=== PATIENT | male | born 1970 | race Caucasian/White ===

== ENCOUNTER 2024-03-31 22:16 | Inpatient (IN) | payer OTHER ==
[2024-04-01 00:39] LABS: BASO % 0.5 % (0-2.0); EOS % 0.9 % (0-4.5); HEMATOCRIT 37.2 % (35.4-49); HEMOGLOBIN 12.9 GM/dL (11.7-16.9); LYMPH % 17.5 % (8-40); MCH 30.4 pg (25.7-33.7); MCHC 34.7 g/dl (32.0-35.9); MEAN CELL VOLUME 87.5 fl (80-96); MEAN PLT VOLUME 7.6 fl (7.5-11.1); MONO % 5.8 % (3.8-10.2); NEUT % 75.3 % (42.8-82.8); PLATELET COUNT 254 10^3/uL (134-434); RBC 4.25 M/mm3 (4.00-5.60); RDW 13.1 % (11.9-15.9); WHITE BLOOD COUNT 8.1 K/mm3 (4.0-10.0)
[2024-04-01] MEDS ORDERED: PIPERACILLIN/TAZOB 3.375 GM 3.375 GM/50 ML BAG IVPB ONE (01:01)
[2024-04-01] MEDS: PIPERACILLIN/TAZOB 3.375 GM 3.375 GM in DEXTROSE 5%-WATER - 50 ML IVPB ONE (01:10)
[2024-04-01 01:22] LABS: POTASSIUM 4.3 mmol/L (3.5-5.1)
[2024-04-01 01:24] LABS: CALCIUM 9.1 mg/dL (8.5-10.1)
[2024-04-01 01:25] LABS: BLOOD UREA NITROGEN 18.9 mg/dL (7-18)
[2024-04-01 01:28] LABS: CREATININE 0.9 mg/dL (0.55-1.3)
[2024-04-01 01:38] LABS: ERYTHROCYTE SEDIMENTATION RATE 85 mm/hr (0-20)
[2024-04-01] MEDS ORDERED: VANCOMYCIN 1 GM PREMIX (F) 1 GM/200 ML BAG ONE (01:55)
[2024-04-01] MEDS: VANCOMYCIN 1 GM PREMIX (F) 1 GM/200 ML BAG IVPB ONE (02:01)
[2024-04-01 03:18] LABS: BILIRUBIN,TOTAL 0.4 mg/dL (0.2-1)
[2024-04-01] MEDS: INSULIN REGULAR HUMAN 100 UNITS/ML *VIAL SQ ONE (03:48)
[2024-04-01] MEDS: SODIUM CHLORIDE 1,000 ML IV STA (03:48)
[2024-04-01] MEDS: SODIUM CHLORIDE 1,000 ML IV SCH (04:29)
[2024-04-01 06:27] LABS: CHLORIDE 106 mmol/L (98-107); POTASSIUM 3.7 mmol/L (3.5-5.1); SODIUM 139 mmol/L (136-145)
[2024-04-01 06:29] LABS: CALCIUM 8.6 mg/dL (8.5-10.1)
[2024-04-01 06:30] LABS: ALBUMIN 3.5 g/dl (3.4-5.0); ANION GAP 6 mmol/L (4-13); BLOOD UREA NITROGEN 15.7 mg/dL (7-18); CO2 28 mmol/L (21-32); GLUCOSE,RANDOM 255 mg/dL (74-106); MAGNESIUM 2.2 mg/dL (1.8-2.4)
[2024-04-01 06:33] LABS: CREATININE 0.7 mg/dL (0.55-1.3); SGOT/AST < 3 U/L (15-37); SGPT/ALT 17 U/L (13-61)
[2024-04-01 06:34] LABS: BILIRUBIN,TOTAL 0.5 mg/dL (0.2-1); PHOSPHOROUS 2.8 mg/dL (2.5-4.9)
[2024-04-01 06:35] LABS: TOT PROT 6.9 g/dl (6.4-8.2)
[2024-04-01 06:42] LABS: BASO % 0.4 % (0-2.0); EOS % 1.4 % (0-4.5); HEMATOCRIT 35.6 % (35.4-49); HEMOGLOBIN 12.5 GM/dL (11.7-16.9); LYMPH % 18.4 % (8-40); MCH 30.7 pg (25.7-33.7); MCHC 35.2 g/dl (32.0-35.9); MEAN CELL VOLUME 87.4 fl (80-96); MEAN PLT VOLUME 7.5 fl (7.5-11.1); MONO % 5.8 % (3.8-10.2); PLATELET COUNT 226 10^3/uL (134-434); RBC 4.07 M/mm3 (4.00-5.60); RDW 12.8 % (11.9-15.9); WHITE BLOOD COUNT 6.3 K/mm3 (4.0-10.0)
[2024-04-01 06:47] LABS: ALK PHOS 163 U/L (45-117)
[2024-04-01] MEDS: INSULIN (LEVEMIR) 100 UNITS/ML UNITS SQ SCH (08:52)
[2024-04-01] MEDS: INSULIN ASPART SLIDING SCALE (NOVOLOG) 1 VIAL SQ SCH (09:00)
[2024-04-01] MEDS: PIPERACILLIN/TAZOB 3.375 GM 50 ML IVPB SCH (10:28)
[2024-04-01] MEDS: ENOXAPARIN NA (PORCINE) 40 MG/0.4 ML DISP.SYRIN SQ SCH (10:28)
[2024-04-01 13:37] VITALS: BMI 29.5
[2024-04-01] MEDS: VANCOMYCIN/WATER FOR INJ (PEG) 1 GM/200 ML BAG IVPB SCH (16:13)
[2024-04-01] MEDS: VANCOMYCIN 1 GM PREMIX (F) 1 GM/200 ML BAG IVPB SCH (16:19)
[2024-04-01] MEDS: VANCOMYCIN 1,000 MG in DEXTROSE 5%-WATER - 250 ML IVPB SCH (22:15)
[2024-04-01] MEDS: PIPERACILLIN/TAZOB 3.375 GM 3.375 GM in DEXTROSE 5%-WATER - 50 ML IVPB SCH (22:16)
[2024-04-02] MEDS: PIPERACILLIN/TAZOB 3.375 GM 50 ML IVPB SCH (02:22)
[2024-04-02] MEDS: VANCOMYCIN/WATER FOR INJ (PEG) 1,000 MG/200 ML BAG IVPB SCH (03:53)
[2024-04-02 09:44] LABS: HEMATOCRIT 35.9 % (35.4-49); HEMOGLOBIN 12.3 GM/dL (11.7-16.9); MCH 30.3 pg (25.7-33.7); MCHC 34.1 g/dl (32.0-35.9); MEAN CELL VOLUME 88.9 fl (80-96); MEAN PLT VOLUME 7.5 fl (7.5-11.1); PLATELET COUNT 243 10^3/uL (134-434); RBC 4.04 M/mm3 (4.00-5.60); RDW 12.9 % (11.9-15.9); WHITE BLOOD COUNT 6.6 K/mm3 (4.0-10.0)
[2024-04-02 09:58] LABS: POTASSIUM 4.2 mmol/L (3.5-5.1)
[2024-04-02 10:05] LABS: CALCIUM 8.8 mg/dL (8.5-10.1)
[2024-04-02 10:12] LABS: CREATININE 0.6 mg/dL (0.55-1.3)
[2024-04-03 08:11] LABS: BASO % 0.7 % (0-2.0); EOS % 2.8 % (0-4.5); HEMATOCRIT 33.6 % (35.4-49); HEMOGLOBIN 11.6 GM/dL (11.7-16.9); LYMPH % 27.6 % (8-40); MCH 30.4 pg (25.7-33.7); MCHC 34.6 g/dl (32.0-35.9); MEAN CELL VOLUME 87.9 fl (80-96); MEAN PLT VOLUME 7.2 fl (7.5-11.1); MONO % 5.8 % (3.8-10.2); NEUT % 63.1 % (42.8-82.8); PLATELET COUNT 239 10^3/uL (134-434); RBC 3.82 M/mm3 (4.00-5.60); RDW 12.9 % (11.9-15.9); WHITE BLOOD COUNT 5.3 K/mm3 (4.0-10.0)
[2024-04-03 08:26] LABS: CALCIUM 8.5 mg/dL (8.5-10.1)
[2024-04-03 08:27] LABS: ALBUMIN 2.9 g/dl (3.4-5.0); BLOOD UREA NITROGEN 8.4 mg/dL (7-18)
[2024-04-03 08:30] LABS: CREATININE 0.6 mg/dL (0.55-1.3)
[2024-04-03 08:32] LABS: BILIRUBIN,TOTAL 0.2 mg/dL (0.2-1); TOT PROT 6.3 g/dl (6.4-8.2)
[2024-04-03] MEDS: INSULIN ASPART SLIDING SCALE (NOVOLOG) 1 VIAL SQ SCH (16:59)
[2024-04-04] MEDS: CEFTRIAXONE 2 GM-D5W BAG 2 GM/50 ML BAG IVPB ONE (11:51)
[2024-04-05 10:27] LABS: HEMATOCRIT 39.2 % (35.4-49); HEMOGLOBIN 13.5 GM/dL (11.7-16.9); MCH 30.6 pg (25.7-33.7); MCHC 34.4 g/dl (32.0-35.9); MEAN PLT VOLUME 7.2 fl (7.5-11.1); PLATELET COUNT 283 10^3/uL (134-434); RDW 13.1 % (11.9-15.9); WHITE BLOOD COUNT 5.3 K/mm3 (4.0-10.0)
[2024-04-05 10:45] LABS: POTASSIUM 4.2 mmol/L (3.5-5.1)
[2024-04-05 10:47] LABS: CALCIUM 9.2 mg/dL (8.5-10.1)
[2024-04-05 10:48] LABS: MAGNESIUM 2.4 mg/dL (1.8-2.4)
[2024-04-05 10:50] LABS: BLOOD UREA NITROGEN 13.4 mg/dL (7-18)
[2024-04-05 10:51] LABS: CREATININE 0.7 mg/dL (0.55-1.3)
[2024-04-05] MEDS: CEFTRIAXONE 2 GM-D5W BAG 2 GM/50 ML BAG IVPB SCH (11:24)
[2024-04-06 10:06] LABS: INR 1.05 (0.83-1.09); PROTHROMBIN TIME (PATIENT) 11.8 SEC (9.7-13.0)
[2024-04-06 10:25] LABS: POTASSIUM 4.2 mmol/L (3.5-5.1)
[2024-04-06 10:26] LABS: HEMATOCRIT 37.7 % (35.4-49); MCH 30.6 pg (25.7-33.7); MCHC 34.6 g/dl (32.0-35.9); MEAN CELL VOLUME 88.4 fl (80-96); MEAN PLT VOLUME 7.3 fl (7.5-11.1); PLATELET COUNT 279 10^3/uL (134-434); RBC 4.26 M/mm3 (4.00-5.60); RDW 13.1 % (11.9-15.9); WHITE BLOOD COUNT 5.2 K/mm3 (4.0-10.0)
[2024-04-06 10:29] LABS: CALCIUM 9.1 mg/dL (8.5-10.1)
[2024-04-06 10:30] LABS: ALBUMIN 3.3 g/dl (3.4-5.0); BLOOD UREA NITROGEN 10.8 mg/dL (7-18); MAGNESIUM 2.3 mg/dL (1.8-2.4)
[2024-04-06 10:32] LABS: CREATININE 0.7 mg/dL (0.55-1.3)
[2024-04-06 10:33] LABS: PHOSPHOROUS 3.6 mg/dL (2.5-4.9)
[2024-04-06 10:36] LABS: BILIRUBIN,TOTAL 0.5 mg/dL (0.2-1)
[2024-04-06 10:37] LABS: TOT PROT 7.1 g/dl (6.4-8.2)
[2024-04-06] MEDS ORDERED: BACITRACIN ZINC 15 GM TUBE TOPICAL OINTMENT ONE (13:59)
[2024-04-06] MEDS ORDERED: LIDOCAINE HCL 2% (20ML MULTI-DOSE VIAL) ONE (13:59)
[2024-04-06] MEDS ORDERED: MIDAZOLAM HCL 2 MG/2 ML SINGLE DOSE VIAL ONE (14:49)
[2024-04-06] MEDS ORDERED: PROPOFOL 40 ML ONE (14:49)
[2024-04-06] MEDS ORDERED: LIDOCAINE HCL/PF 2% SDV 5ML VIAL ONE (15:29)
[2024-04-06] MEDS ORDERED: DEXAMETHASONE SOD PHOSPHATE 4 MG/1 ML VIAL ONE (15:29)
[2024-04-06] MEDS ORDERED: ONDANSETRON 4 MG/2 ML VIAL ONE (15:29)
[2024-04-06] MEDS: LIDOCAINE HCL 2% (50ML VIAL) NR ONE ×2 (15:34)
[2024-04-06] MEDS ORDERED: ONDANSETRON 4 MG/2 ML VIAL IVPUSH PRN (16:14)
[2024-04-06] MEDS ORDERED: oxyCODONE HCL 5 MG TABLET PO PRN (16:14)
[2024-04-06] MEDS: LACTATED RINGERS SOLUTION 1,000 ML IV SCH (16:18)
[2024-04-06] MEDS: INSULIN ASPART SLIDING SCALE (NOVOLOG) 1 VIAL SQ SCH (17:24)
[2024-04-06] MEDS: ACETAMINOPHEN 325 MG TABLET (FP) PO SCH (18:30)
[2024-04-06 18:32] VITALS: RESP 18
[2024-04-06] MEDS ORDERED: ACETAMINOPHEN 325 MG TABLET (FP) PO PRN (20:00)
[2024-04-06] MEDS: INSULIN (LEVEMIR) 100 UNITS/ML UNITS SQ SCH (21:32)
[2024-04-07 09:43] LABS: HEMATOCRIT 36.1 % (35.4-49); HEMOGLOBIN 12.1 GM/dL (11.7-16.9); MCH 29.9 pg (25.7-33.7); MCHC 33.6 g/dl (32.0-35.9); MEAN PLT VOLUME 7.4 fl (7.5-11.1); PLATELET COUNT 284 10^3/uL (134-434); RBC 4.05 M/mm3 (4.00-5.60); RDW 12.6 % (11.9-15.9); WHITE BLOOD COUNT 8.2 K/mm3 (4.0-10.0)
[2024-04-07] MEDS: CEFTRIAXONE 2 GM-D5W BAG 2 GM/50 ML BAG IVPB SCH (10:10)
[2024-04-07] MEDS: HEPARIN NA (PORCINE) 5,000 UNITS/ML 1ML VIAL SQ SCH (22:49)
[2024-04-08 13:23] VITALS: BP 127/81; PULSE 82; TEMP 97.3
== END 2024-04-08 18:07 | disposition home or self-care (01) | DRG 314 ==
LOC: JER 22:16 → JERBED 04-01 00:01 → J5S 04-01 07:47
PROVIDERS: ADMIT Internal Medicine
PROC: 0Y6R0Z3 Detachment at Right 2nd Toe, Low, Open Approach (ICD-10-PCS; principal; 2024-04-06 15:30)
DX: E11.69 Type 2 diabetes mellitus with other specified complication (principal); E11.621 Type 2 diabetes mellitus with foot ulcer; L97.519 Non-pressure chronic ulcer of other part of right foot with unspecified severity; M86.8X7 Other osteomyelitis, ankle and foot; E11.65 Type 2 diabetes mellitus with hyperglycemia; L03.031 Cellulitis of right toe
CPT/HCPCS: 36415; 73630-TC-RT-FY; 73718-TC-RT; 80048; 80053; 82962; 83036; 83735; 84100; 85025; 85027; 85610; 85651; 86140; 86850; 86900; 86901; 87070; 87075; 87077; 87081; 87186; 87205; 88305-TC; 88311-TC; 93005; 93010; 93922; 93926-TC; 94760; 99285-25; G0480; J1644

== ENCOUNTER 2024-06-11 17:43 | Emergency (ER) | payer OTHER ==
[2024-06-11 17:54] VITALS: BP 117/66; PULSE 89; RESP 18; TEMP 98.4; BMI 29.2
[2024-06-11] MEDS ORDERED: ACETAMINOPHEN 500 MG TABLET (FP) ONE (18:49)
[2024-06-11] MEDS: ACETAMINOPHEN 500 MG TABLET (FP) PO ONE (19:09)
[2024-06-11 19:14] LABS: BASO % 0.7 % (0-2.0); EOS % 3.3 % (0-4.5); HEMATOCRIT 34.6 % (35.4-49); LYMPH % 32.6 % (8-40); MCH 30.1 pg (25.7-33.7); MCHC 34.7 g/dl (32.0-35.9); MEAN CELL VOLUME 86.9 fl (80-96); MEAN PLT VOLUME 6.8 fl (7.5-11.1); MONO % 7.9 % (3.8-10.2); NEUT % 55.5 % (42.8-82.8); PLATELET COUNT 263 10^3/uL (134-434); RBC 3.98 M/mm3 (4.00-5.60); WHITE BLOOD COUNT 4.7 K/mm3 (4.0-10.0)
[2024-06-11 19:21] LABS: INR 1.08 (0.83-1.09); PROTHROMBIN TIME (PATIENT) 11.8 SEC (9.7-13.0)
[2024-06-11 19:23] LABS: ACTIVATED PTT 34.3 SECONDS (25.2-36.5)
[2024-06-11 19:37] LABS: POTASSIUM 3.7 mmol/L (3.5-5.1)
[2024-06-11 19:40] LABS: ALBUMIN 3.8 g/dl (3.4-5.0); BLOOD UREA NITROGEN 21.2 mg/dL (7-18)
[2024-06-11 19:43] LABS: CREATININE 0.6 mg/dL (0.55-1.3)
[2024-06-11 19:44] LABS: BILIRUBIN,TOTAL 0.4 mg/dL (0.2-1); TOT PROT 7.6 g/dl (6.4-8.2)
[2024-06-11 20:04] LABS: ERYTHROCYTE SEDIMENTATION RATE 57 mm/hr (0-20)
[2024-06-11] MEDS: DOXYCYCLINE HYCLATE 100 MG CAPSULE PO ONE (21:19)
[2024-06-11] MEDS ORDERED: DOXYCYCLINE HYCLATE 100 MG CAPSULE PO ONE (21:33)
== END 2024-06-11 21:36 | disposition home or self-care (01) ==
LOC: JER 17:43
DX: M79.89 Other specified soft tissue disorders (principal); E11.628 Type 2 diabetes mellitus with other skin complications; L08.9 Local infection of the skin and subcutaneous tissue, unspecified
CPT/HCPCS: 36415; 73590-TC-RT-FY; 73610-TC-RT-FY; 73630-TC-RT-FY; 80053; 85025; 85610; 85651; 85730; 86140; 93971-TC; 99285-25

== ENCOUNTER 2024-06-28 11:09 | Inpatient (IN) | payer OTHER ==
[2024-06-28 11:26] VITALS: BMI 29.2
[2024-06-28 13:07] LABS: BASO % 0.6 % (0-2.0); HEMATOCRIT 37.5 % (35.4-49); HEMOGLOBIN 12.9 GM/dL (11.7-16.9); LYMPH % 30.3 % (8-40); MCH 30.3 pg (25.7-33.7); MCHC 34.5 g/dl (32.0-35.9); MEAN CELL VOLUME 87.9 fl (80-96); MEAN PLT VOLUME 7.5 fl (7.5-11.1); MONO % 5.5 % (3.8-10.2); NEUT % 60.6 % (42.8-82.8); PLATELET COUNT 234 10^3/uL (134-434); RBC 4.26 M/mm3 (4.00-5.60); RDW 14.8 % (11.9-15.9); WHITE BLOOD COUNT 5.7 K/mm3 (4.0-10.0)
[2024-06-28 13:17] LABS: INR 1.03 (0.83-1.09); PROTHROMBIN TIME (PATIENT) 11.3 SEC (9.7-13.0)
[2024-06-28 13:20] LABS: ACTIVATED PTT 31.7 SECONDS (25.2-36.5)
[2024-06-28 13:22] LABS: CHLORIDE 106 mmol/L (98-107); POTASSIUM 4.3 mmol/L (3.5-5.1); SODIUM 139 mmol/L (136-145)
[2024-06-28 13:24] LABS: CALCIUM 9.8 mg/dL (8.5-10.1)
[2024-06-28 13:25] LABS: ANION GAP 8 mmol/L (4-13); BLOOD UREA NITROGEN 22.3 mg/dL (7-18); CO2 25 mmol/L (21-32); GLUCOSE,RANDOM 77 mg/dL (74-106)
[2024-06-28 13:28] LABS: CREATININE 0.7 mg/dL (0.55-1.3); SGOT/AST 17 U/L (15-37); SGPT/ALT 29 U/L (13-61)
[2024-06-28 13:29] LABS: BILIRUBIN,TOTAL 0.4 mg/dL (0.2-1)
[2024-06-28 13:30] LABS: TOT PROT 7.4 g/dl (6.4-8.2)
[2024-06-28 13:33] LABS: ALK PHOS 138 U/L (45-117)
[2024-06-28 13:52] LABS: ERYTHROCYTE SEDIMENTATION RATE 31 mm/hr (0-20)
[2024-06-28] MEDS: INSULIN ASPART SLIDING SCALE (NOVOLOG) 1 VIAL SQ SCH (17:14)
[2024-06-28] MEDS: ATORVASTATIN CA 20 MG TABLET (FP) PO SCH (21:14)
[2024-06-28] MEDS: INSULIN (LEVEMIR) 100 UNITS/ML UNITS SQ SCH (21:14)
[2024-06-28] MEDS ORDERED: INSULIN (LEVEMIR) 100 UNITS/ML UNITS SQ SCH (22:00)
[2024-06-29 08:16] LABS: INR 1.15 (0.83-1.09); PROTHROMBIN TIME (PATIENT) 12.5 SEC (9.7-13.0)
[2024-06-29 08:19] LABS: ACTIVATED PTT 33.3 SECONDS (25.2-36.5)
[2024-06-29 08:25] LABS: BASO % 0.6 % (0-2.0); EOS % 3.8 % (0-4.5); HEMATOCRIT 34.2 % (35.4-49); HEMOGLOBIN 12.1 GM/dL (11.7-16.9); LYMPH % 35.6 % (8-40); MCH 30.8 pg (25.7-33.7); MCHC 35.5 g/dl (32.0-35.9); MEAN CELL VOLUME 86.8 fl (80-96); MEAN PLT VOLUME 7.5 fl (7.5-11.1); MONO % 7.3 % (3.8-10.2); NEUT % 52.7 % (42.8-82.8); PLATELET COUNT 196 10^3/uL (134-434); RBC 3.94 M/mm3 (4.00-5.60); RDW 14.6 % (11.9-15.9); WHITE BLOOD COUNT 4.2 K/mm3 (4.0-10.0)
[2024-06-29 08:27] LABS: POTASSIUM 4.1 mmol/L (3.5-5.1)
[2024-06-29 08:31] LABS: ALBUMIN 3.5 g/dl (3.4-5.0); BLOOD UREA NITROGEN 18.8 mg/dL (7-18); CALCIUM 9.1 mg/dL (8.5-10.1)
[2024-06-29 08:34] LABS: CREATININE 0.7 mg/dL (0.55-1.3)
[2024-06-29 08:36] LABS: BILIRUBIN,TOTAL 0.7 mg/dL (0.2-1)
[2024-06-29 08:53] LABS: TOT PROT 6.8 g/dl (6.4-8.2)
[2024-06-29] MEDS: ENOXAPARIN NA (PORCINE) 40 MG/0.4 ML DISP.SYRIN SQ ONE (09:15)
[2024-06-30 09:19] LABS: HEMATOCRIT 39.9 % (35.4-49); HEMOGLOBIN 13.6 GM/dL (11.7-16.9); MCH 30.4 pg (25.7-33.7); MCHC 34.2 g/dl (32.0-35.9); MEAN CELL VOLUME 88.7 fl (80-96); MEAN PLT VOLUME 7.8 fl (7.5-11.1); PLATELET COUNT 228 10^3/uL (134-434); RDW 14.7 % (11.9-15.9); WHITE BLOOD COUNT 4.2 K/mm3 (4.0-10.0)
[2024-06-30 09:42] LABS: POTASSIUM 3.7 mmol/L (3.5-5.1)
[2024-06-30 09:47] LABS: BLOOD UREA NITROGEN 15.9 mg/dL (7-18); CALCIUM 9.3 mg/dL (8.5-10.1)
[2024-06-30 09:52] LABS: CREATININE 0.7 mg/dL (0.55-1.3)
[2024-06-30] MEDS: DEXTROSE 50%-WATER 25 GM/50 ML DISP.SYRIN IVPUSH ONE (11:05)
[2024-06-30] MEDS ORDERED: PROPOFOL 20 ML ONE (12:07)
[2024-06-30] MEDS ORDERED: MIDAZOLAM HCL 2 MG/2 ML SINGLE DOSE VIAL ONE (12:07)
[2024-06-30] MEDS: LIDOCAINE HCL 1%, 10 MG/ML (20ML VIAL) NR ONE ×3 (12:12)
[2024-06-30] MEDS: ceFAZolin SODIUM 1 GM VIAL IVPB ONE ×3 (12:30)
[2024-06-30] MEDS: LACTATED RINGERS SOLUTION 1,000 ML IV SCH ×2 (13:13→15:49)
[2024-06-30 13:49] VITALS: RESP 18
[2024-06-30] MEDS: INSULIN ASPART SLIDING SCALE (NOVOLOG) 1 VIAL SQ SCH (16:56)
[2024-06-30] MEDS: ATORVASTATIN CA 20 MG TABLET (FP) PO SCH (21:14)
[2024-06-30] MEDS: INSULIN (LEVEMIR) 100 UNITS/ML UNITS SQ SCH (22:14)
[2024-07-01 08:37] LABS: HEMATOCRIT 35.5 % (35.4-49); HEMOGLOBIN 12.3 GM/dL (11.7-16.9); MCH 30.3 pg (25.7-33.7); MCHC 34.6 g/dl (32.0-35.9); MEAN CELL VOLUME 87.5 fl (80-96); MEAN PLT VOLUME 7.4 fl (7.5-11.1); PLATELET COUNT 185 10^3/uL (134-434); RBC 4.06 M/mm3 (4.00-5.60); RDW 14.2 % (11.9-15.9); WHITE BLOOD COUNT 5.1 K/mm3 (4.0-10.0)
[2024-07-01 08:56] LABS: POTASSIUM 3.9 mmol/L (3.5-5.1)
[2024-07-01 09:00] LABS: ALBUMIN 3.3 g/dl (3.4-5.0); BLOOD UREA NITROGEN 15.1 mg/dL (7-18); CALCIUM 8.7 mg/dL (8.5-10.1); MAGNESIUM 2.1 mg/dL (1.8-2.4)
[2024-07-01 09:03] LABS: CREATININE 0.6 mg/dL (0.55-1.3); PHOSPHOROUS 3.5 mg/dL (2.5-4.9)
[2024-07-01 09:04] LABS: BILIRUBIN,TOTAL 0.5 mg/dL (0.2-1); TOT PROT 6.5 g/dl (6.4-8.2)
[2024-07-01] MEDS: ENOXAPARIN NA (PORCINE) 40 MG/0.4 ML DISP.SYRIN SQ SCH (10:21)
[2024-07-01] MEDS ORDERED: CEFTRIAXONE 2 GM-D5W BAG 2 GM/50 ML BAG IVPB SCH (13:30)
[2024-07-01] MEDS: PIPERACILLIN/TAZOB 2.25 GM 2.25 GM/50 ML BAG IVPB SCH (13:55)
[2024-07-02 13:47] VITALS: BP 109/73; PULSE 82; TEMP 98.8
== END 2024-07-02 18:38 | disposition home or self-care (01) | DRG 314 ==
LOC: JER 11:09 → JERBED 14:59 → J6S 16:35
PROVIDERS: ADMIT Internal Medicine; ATTEND Internal Medicine
PROC: 0Y6R0Z0 Detachment at Right 2nd Toe, Complete, Open Approach (ICD-10-PCS; principal; 2024-06-30 11:00)
DX: T87.43 Infection of amputation stump, right lower extremity (principal); E11.69 Type 2 diabetes mellitus with other specified complication; M86.8X7 Other osteomyelitis, ankle and foot; I10 Essential (primary) hypertension; E78.5 Hyperlipidemia, unspecified; E11.40 Type 2 diabetes mellitus with diabetic neuropathy, unspecified; Y83.5 Amputation of limb(s) as the cause of abnormal reaction of the patient, or of later complication, without mention of misadventure at the time of the procedure; E11.65 Type 2 diabetes mellitus with hyperglycemia; E11.621 Type 2 diabetes mellitus with foot ulcer; L97.519 Non-pressure chronic ulcer of other part of right foot with unspecified severity
CPT/HCPCS: 36415; 73630-TC-RT-FY; 73718-TC-RT; 80048; 80053; 80061; 82962; 83036; 83735; 84100; 85025; 85027; 85610; 85651; 85730; 86140; 86850; 86900; 86901; 87070; 87075; 87077; 87106; 87205; 88305-TC; 88311-TC; 93005; 93010; 93922; 93925-TC; 94760; 99285-25